=== PATIENT | male | born 1995 | race Caucasian/White ===

== ENCOUNTER → 2020-08-15 | Outpatient (CLI) | payer OTHER ==
--- NOTE | 2020-08-15 13:59 | Diagnostic Imaging Report ---
PROCEDURE: MR imaging cervical spine without contrast. TECHNIQUE: Multiplanar, multisequence MR imaging of the cervical spine was performed without contrast. DATE: August 15, 2020. COMPARISON: None. INDICATION: 24-year-old male, neck pain. FINDINGS: There is a mild focal increase of normal cervical lordosis at the level of C6-C7. The bone marrow signal is unremarkable. The visualized spinal cord is unremarkable. The disc heights are well preserved. C2-C3: There is no disc bulge. The uncovertebral and facet joints are unremarkable. There is no foraminal narrowing. There is no spinal canal stenosis. C3-C4: There is no disc bulge. The uncovertebral and facet joints are unremarkable. There is no foraminal narrowing. There is no spinal canal stenosis. C4-C5: There is no disc bulge. The uncovertebral and facet joints are unremarkable. There is no foraminal narrowing. There is no spinal canal stenosis. C5-C6: There is no disc bulge. The uncovertebral and facet joints are unremarkable. There is no foraminal narrowing. There is no spinal canal stenosis. C6-C7: There is a small posterior disc osteophyte complex. The uncovertebral and facet joints are unremarkable. There is no foraminal narrowing. There is no spinal canal stenosis. C7-T1: There is no disc bulge. The uncovertebral and facet joints are unremarkable. There is no foraminal narrowing. There is no spinal canal stenosis. IMPRESSION: 1. Small posterior disc osteophyte complex at C6-C7 without foraminal or spinal stenosis. 2. Mild focal increase of normal cervical lordosis at the level of C6-C7. 3. Unremarkable bone marrow evaluation. Dictated by: Dictated on workstation # [id number]
== END ==
LOC: RAD 13:15
PROVIDERS: ATTEND Nurse Practitioner Family
DX: M25.78 Osteophyte, vertebrae (principal); M50.823 Other cervical disc disorders at C6-C7 level
CPT/HCPCS: 72141